=== PATIENT | female | born 1995 | race African-American/Black ===

== ENCOUNTER 2018-05-12 19:20 | Emergency (ER) | payer SELFPAY ==
[2018-05-12 19:24] VITALS: BP 131/92; PULSE 88; TEMP 98.8; BMI 23.0
[2018-05-12] MEDS ORDERED: LORATADINE 10 MG TABLET PO ONE (19:42)
[2018-05-12] MEDS ORDERED: FAMOTIDINE 20 MG TABLET PO ONE (19:42)
--- NOTE | 2018-05-12 19:42 | PDOC ---
History of Present Illness - History of Present Illness Initial Comments: The patient is a 22 year old female with PMHx of , who presents to the ER for an allergic reaction. The patient states that she was eating out and accidentally ate something that contained garlic. She developed a rash soon after on her b/l feet and arms. She also notes that her hives are very itchy. She states she took 2 Benadryl approximately 20 minutes prior to arriving to the ER and also applied anti-itch cream. She also reports associated nausea. She states she has had a severe allergic reaction to seafood in the past in which her throat began to close and had to seek emergency medical attention. She states that she does not carry an Epi pen. She denies any current difficulty breathing. Allergies: seafood (rash, throat swelling), garlic (rash) <Niurka Michelle - Last Filed: 05/12/18 20:03> <Devante Narayanan - Last Filed: 05/12/18 20:39> - General Chief Complaint: Hives Stated Complaint: ALLERGIC REACTION Time Seen by Provider: 05/12/18 19:29 Past History <Niurka Michelle - Last Filed: 05/12/18 20:03> - Past Medical History COPD: No Psychiatric Problems: Yes (ADD) Seizures: Yes - Suicide/Smoking/Psychosocial Hx Smoking History: Never smoked Hx Alcohol Use: No Drug/Substance Use Hx: No <Devante Narayanan - Last Filed: 05/12/18 20:39> - Past Medical History Allergies/Adverse Reactions: Allergies Allergy/AdvReac Type Severity Reaction Status Date / Time amoxicillin Allergy Verified 05/12/18 19:21 garlic Allergy Verified 05/12/18 19:21 Penicillins Allergy Verified 05/12/18 19:21 Home Medications: Ambulatory Orders Diphenhydramine HCl [Benadryl -] 50 mg PO ONCE 05/12/18 Epinephrine [Epipen] 0.3 mg IJ PRN #1 auto.injct 05/12/18 Ondansetron [Zofran Odt -] 4 mg SL BID #14 od.tablet 05/12/18 Review of Systems - Review of Systems Comments:: A complete review of 10 out of 10 review of systems is taken and is negative apart from what is previously mentioned below and in the HPI. Constitutional: no recent illness; no fever ENT: no sore throat Cardiovascular: no palpitations; no chest pain Pulmonary: no cough; no trouble breathing Gastrointestinal: No nausea; no vomiting; no diarrhea Genitourinary: No urinary problems; no hematuria Skin: Hives on feet and arms. Lymph system: No swollen glands Musculoskeletal: No joint swelling Neurological: No weakness; No numbness; No Headache; no vertigo; no lightheadedness Psychiatric:No anxiety; no depression 05/12/18 19:55 <Niurka Michelle - Last Filed: 05/12/18 20:03> *Physical Exam - Vital Signs Last Vital Signs Temp Pulse Resp BP Pulse Ox 98.8 F 88 16 131/92 100 05/12/18 19:22 05/12/18 19:22 05/12/18 19:22 05/12/18 19:22 05/12/18 19:22 - Physical Exam Comments: Vitals: Triage Vital signs reviewed General Appearance: no acute distress, well nourished well developed Head: Atraumatic Extremities: Full range of motion to all extremities, no cyanosis, clubbing, or edema Skin: Few small bumps on right deltoid and b/l feet. Errythema of b/l feet and arms. <Niurka Michelle - Last Filed: 05/12/18 20:03> - Vital Signs Last Vital Signs Temp Pulse Resp BP Pulse Ox 98.8 F 88 16 131/92 100 05/12/18 19:22 05/12/18 19:22 05/12/18 19:22 05/12/18 19:22 05/12/18 19:22 <Devante Narayanan - Last Filed: 05/12/18 20:39> ED Treatment Course - Medications Given in the ED: ED Medications Discontinued Medications Generic Name Dose Route Start Last Admin Trade Name Freq PRN Reason Stop Dose Admin Famotidine 20 mg 05/12/18 19:42 05/12/18 19:53 Pepcid - PO 05/12/18 19:43 20 mg ONCE ONE Administration Loratadine 10 mg 05/12/18 19:42 05/12/18 19:53 Claritin - PO 05/12/18 19:43 10 mg ONCE ONE Administration <Niurka Michelle - Last Filed: 05/12/18 20:03> Medical Decision Making - Medical Decision Making 05/12/18 20:34 Patient feels better after Benadryl and Claritin itching and rash has improved History examination consistent with mild ALLERGIC reaction Patient does have a remote history of throat swelling with Schrempp does not have an EpiPen at home. She did feel slightly nauseous here in the emergency department I we'll provide the patient with a prescription for a renewal of her EpiPen as well as Zofran she will continue Benadryl for the next 3 days and follow-up with her doctor on Monday. Findings, the need for follow-up, strict return instructions discussed patient. <Devante Narayanan - Last Filed: 05/12/18 20:39> *DC/Admit/Observation/Transfer - Attestations Scribe Attestion: 05/12/18 20:02 Documentation prepared by Niurka Michelle, acting as medical hospital sales for Devante Narayanan MD. <Niurka Michelle - Last Filed: 05/12/18 20:03> - Discharge Dispostion Decision to Admit order: No <Devante Narayanan - Last Filed: 05/12/18 20:39> Diagnosis at time of Disposition: Allergic reaction Qualifiers: Encounter type: initial encounter Qualified Code(s): T78.40XA - Allergy, unspecified, initial encounter - Discharge Dispostion Disposition: HOME Condition at time of disposition: Good - Referrals Referrals: [facility] [place] [Provider Group] - Patient Instructions Printed Discharge Instructions: [place] Additional Instructions: Drink plenty of fluids. Take Benadryl 25 mg every 4-6 hours for the next 3 days. [id number] Pepcid as an on package. EpiPen as directed only for severe life-threatening ALLERGIC reaction. Follow-up with your doctor on Monday. Return to the emergency department for any difficulty breathing respiratory involvement any severe concerning symptoms or for any concerns. Zofran as needed for nausea.
[2018-05-12] MEDS ORDERED: FAMOTIDINE 20 MG TABLET ONE (19:52)
[2018-05-12] MEDS ORDERED: LORATADINE 10 MG TABLET ONE (19:52)
[2018-05-12] MEDS ORDERED: ONDANSETRON *ODT* 4 MG TABLET SL ONE (20:00)
[2018-05-12] MEDS ORDERED: ONDANSETRON *ODT* 4 MG TABLET ONE (20:01)
== END 2018-05-12 20:43 | disposition home or self-care (01) ==
LOC: FER 19:20
DX: T78.40XA Allergy, unspecified, initial encounter (principal)
CPT/HCPCS: 99281-25; Q0162

== ENCOUNTER 2018-05-23 14:37 | Emergency (ER) | payer SELFPAY ==
[2018-05-23 14:45] VITALS: BP 111/72; PULSE 87; TEMP 99.3; BMI 24.5
[2018-05-23] MEDS ORDERED: MAGNESIUM CITRATE 300 ML BOTTLE PO ONE (15:23)
--- NOTE | 2018-05-23 15:29 | PDOC ---
History of Present Illness - General Chief Complaint: Hemorrhoids Stated Complaint: HEMORRHOID Time Seen by Provider: 05/23/18 14:50 Past History - Past Medical History Allergies/Adverse Reactions: Allergies Allergy/AdvReac Type Severity Reaction Status Date / Time amoxicillin Allergy Verified 05/23/18 14:41 garlic Allergy Verified 05/23/18 14:41 Penicillins Allergy Verified 05/23/18 14:41 Home Medications: Ambulatory Orders Hydrocortisone 2.5% Topical Cr [Anusol 2.5% Hc Cream -] 1 applic RC BID #1 tube 05/21/18 Hydrocortisone/Pramoxine [Proctofoam-Hc Foam] 1 gm RC TID #1 tube 05/21/18 Nitrofurantoin Macrocrystal [Nitrofurantoin] 100 mg PO BID #10 capsule 05/21/18 Phenazopyridine HCl [Pyridium] 200 mg PO TID #6 tablet 05/21/18 Polyethylene Glycol 3350 [Miralax (For Bowel Prep) -] 17 gm PO DAILY #1 bottle 05/21/18 Polyethylene Glycol 3350 [Miralax (For Bowel Prep) -] 17 gm PO DAILY #1 bottle 05/23/18 COPD: No DVT: No Psychiatric Problems: Yes (ADD) Seizures: Yes - Suicide/Smoking/Psychosocial Hx Smoking History: Never smoked Have you smoked in the past 12 months: No Information on smoking cessation initiated: No Hx Alcohol Use: No Drug/Substance Use Hx: No Substance Use Type: None *Physical Exam - Vital Signs Last Vital Signs Temp Pulse Resp BP Pulse Ox 99.3 F 87 20 111/72 98 05/23/18 14:38 05/23/18 14:38 05/23/18 14:38 05/23/18 14:38 05/23/18 14:38 *DC/Admit/Observation/Transfer Diagnosis at time of Disposition: External hemorrhoid, thrombosed - Discharge Dispostion Disposition: HOME Condition at time of disposition: Stable Decision to Admit order: No - Prescriptions Prescriptions: Polyethylene Glycol 3350 [Miralax (For Bowel Prep) -] 17 gm PO DAILY #1 bottle - Referrals - Patient Instructions Printed Discharge Instructions: DI for Hemorrhoids - Post Discharge Activity
[2018-05-23] MEDS ORDERED: MAGNESIUM CITRATE 300 ML BOTTLE ONE (15:36)
--- NOTE | 2018-05-23 15:58 | PDOC ---
History of Present Illness - General Chief Complaint: Hemorrhoids Stated Complaint: HEMORRHOID Time Seen by Provider: 05/23/18 14:50 - History of Present Illness Initial Comments: 22yo F presenting with rectal pain. Pt states that she came in 2 days ago for similar complaint and was diagnosed with a hemorrhoid. Patient comes in today because she thinks she has developed a second hemorrhoid since her last visit 2 days ago. Patient states two days ago she was given a topical cream, prescribed an antibiotic, and told to do a sitz bath treatment at home. Patient states she did not last picker the antibiotic, and that she did not get any relief from the cream or bath. Patient has history of chronic constipation and has adjusted her diet to try to help, but currently takes no medications. Patient states that she has had "10/10" tenderness in the perianal area when sitting and using the bathroom, and has had occasional blood with wiping over the past 3 days. Patient denies fever, chills, nausea, vomiting, chest pain, abdominal pain, and SOB. Patient states that she generally has bowel movements anywhere from every 2 to every 5 days, with frequent straining and hard stools, and that her visit to the ED 2 days ago was after a 5 day bout of constipation. 05/23/18 15:57 Past History - Past Medical History Allergies/Adverse Reactions: Allergies Allergy/AdvReac Type Severity Reaction Status Date / Time amoxicillin Allergy Verified 05/23/18 14:41 garlic Allergy Verified 05/23/18 14:41 Penicillins Allergy Verified 05/23/18 14:41 Home Medications: Ambulatory Orders Hydrocortisone 2.5% Topical Cr [Anusol 2.5% Hc Cream -] 1 applic RC BID #1 tube 05/21/18 Hydrocortisone/Pramoxine [Proctofoam-Hc Foam] 1 gm RC TID #1 tube 05/21/18 Nitrofurantoin Macrocrystal [Nitrofurantoin] 100 mg PO BID #10 capsule 05/21/18 Phenazopyridine HCl [Pyridium] 200 mg PO TID #6 tablet 05/21/18 Polyethylene Glycol 3350 [Miralax (For Bowel Prep) -] 17 gm PO DAILY #1 bottle 05/21/18 Polyethylene Glycol 3350 [Miralax (For Bowel Prep) -] 17 gm PO DAILY #1 bottle 08/08/18 COPD: No DVT: No Psychiatric Problems: Yes (ADD) Seizures: Yes - Suicide/Smoking/Psychosocial Hx Smoking History: Never smoked Have you smoked in the past 12 months: No Information on smoking cessation initiated: No Hx Alcohol Use: No Drug/Substance Use Hx: No Substance Use Type: None Review of Systems - Review of Systems Comments:: Constitutional: no fever, no chills Cardiovascular: no chest pain, no palpitations Respiratory: no cough, no shortness of breath Gastrointestinal: +rectal pain, no abdominal pain, no nausea, no vomiting, no diarrhea, +constipation Genitourinary: no dysuria, no frequency Musculoskeletal: no myalgia, no arthralgia Skin: no rash, no itching Neurologic: no headache, no dizziness *Physical Exam - Vital Signs Last Vital Signs Temp Pulse Resp BP Pulse Ox 99.3 F 87 20 111/72 98 05/23/18 14:38 05/23/18 14:38 05/23/18 14:38 05/23/18 14:38 05/23/18 14:38 - Physical Exam Comments: General: Awake, alert, and fully oriented, in no acute distress Head: no signs of trauma Eyes: EOMI ENT: moist mucus membranes, Neck: Normal ROM, supple Lungs: Lungs clear, Normal breath sounds Cardio: Regular rhythm, S1 and S2 present, no murmurs, rubs, or gallops Abdomen: 1cm circular thrombosed hemorrhoid at 7 'o' clock, Soft, nontender, normal bowel sounds. No guarding, no rebound, no masses Extremities: Normal range of motion, Distal pulses present SKIN: Warm, Dry, normal turgor, no rashes or lesions noted Neurologic: Cranial nerves II through XII grossly intact. Normal speech ED Treatment Course - Medications Given in the ED: ED Medications Discontinued Medications Generic Name Dose Route Start Last Admin Trade Name Freq PRN Reason Stop Dose Admin Magnesium Citrate 300 ml 05/23/18 15:23 05/23/18 15:37 Citroma - PO 05/23/18 15:24 300 ml ONCE ONE Administration Medical Decision Making - Medical Decision Making 22yo F with rectal pain. History of constipation, straining. Instructed the patient to use over the counter Miralax, continue using topical cream and sitz path, and NSAIDS for pain control. Will discharge. Patient amenable to plan. 05/23/18 16:16 *DC/Admit/Observation/Transfer Diagnosis at time of Disposition: External hemorrhoid, thrombosed - Discharge Dispostion Disposition: HOME Condition at time of disposition: Stable - Prescriptions Prescriptions: Polyethylene Glycol 3350 [Miralax (For Bowel Prep) -] 17 gm PO DAILY #1 bottle - Referrals - Patient Instructions Printed Discharge Instructions: DI for Hemorrhoids - Post Discharge Activity
== END 2018-05-23 15:28 | disposition home or self-care (01) ==
LOC: FER 14:37
DX: K64.5 Perianal venous thrombosis (principal); K59.00 Constipation, unspecified; F98.8 Other specified behavioral and emotional disorders with onset usually occurring in childhood and adolescence; R56.9 Unspecified convulsions
CPT/HCPCS: 99281-25